=== PATIENT | female | born 1960 | race African-American/Black ===

== ENCOUNTER 2018-09-04 12:52 | Emergency (ER) | payer OTHER, MEDICARE, MEDICAID ==
[~2018-09-04] VITALS: Ht 165.1 cm; Wt 90.7 kg
[~2018-09-04 12:52] MED LIST: CETI10TA22 PO; CLON0.1T PO; CYCL10TA2 PO; ERGO500027 PO; HYDR25TA9 PO; VALS40TA2 PO
[2018-09-04 13:30] VITALS: BP 153/74
[2018-09-04] MEDS ORDERED: CYCLOBENZAPRINE 10 MG TABLET. PO ONE (13:30)
[2018-09-04] MEDS ORDERED: IBUPROFEN 400 MG TABLET. PO ONE (13:30)
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
[2018-09-04] MEDS ORDERED: IBUP-1060 PO (14:25)
[2018-09-04] MEDS ORDERED: DIAZ5TAB PO (14:25)
== END 2018-09-04 14:33 | disposition home or self-care (01) ==
LOC: ER 12:52
DX: M25.512 Pain in left shoulder (principal); M54.2 Cervicalgia; M62.830 Muscle spasm of back; V43.52XA Car driver injured in collision with other type car in traffic accident, initial encounter; Y93.89 Activity, other specified; Y92.89 Other specified places as the place of occurrence of the external cause; Y99.8 Other external cause status
CPT/HCPCS: 73000; 99283

== ENCOUNTER → 2021-03-12 | Outpatient (CLI) | payer OTHER, MEDICAID ==
[~2021-03-12] MED LIST changes: -CETI10TA22 PO; +CETI10TA74 PO; +DIAZ5TAB PO; +HYDR-2145 PO; -HYDR25TA9 PO; +IBUP-1060 PO
--- NOTE | 2021-03-13 10:09 | RAD ---
EXAM: Bilateral digital screening mammogram with tomosynthesis. HISTORY: 60-year-old female with a history of right breast cancer, status post right mastectomy, pres ents for annual mammography of the left breast. TECHNIQUE: Full-field digital craniocaudal and mediolateral oblique 2D and 3D tomosynthesis images of the left breast are obtained for evaluation. Computer aided detection was applied. COMPARISON: 09/06/2019 and 08/22/2017 BREAST PARENCHYMAL DENSITY: Level B - Scattered fibroglandular densities. FINDINGS: There is no new suspicious mass, microcalcification or region of architectural distortion. There are stable left axillary and axillary tail lymph nodes. There is stable coarse benign calcifica tion within the left breast. IMPRESSION: BI-RADS Category 2: Benign finding(s). RECOMMENDATION: Annual mammography is recommended. If your mammogram demonstrates that you have dense breast tissue, which could hide abnormalities, and if you have other risk factors for breast cancer that have been identified, you might benefit from s upplemental screening tests that may be suggested by your ordering physician. Dense breast tissue, i n and of itself, is a relatively common condition. This information is not provided to cause undue c oncern, but rather to raise your awareness and to promote discussion with your physician regarding th e presence of other risk factors, in addition to dense breast tissue. A report of your mammography re sults will be sent to you and your physician. You should contact your physician if you have any ques tions or concerns regarding this report. Mammography is a sensitive method for finding small breast cancers, but it does not detect them all a nd is not a substitute for careful clinical examination. A negative mammogram does not negate a clin ically suspicious finding and should not result in delay in biopsying a clinically suspicious abnorma lity. PQRS compliance statement - Patient information was entered into a reminder system with a target due date for the next mammogram. "Our facility is accredited by the [employer] Mammography [employer]." Electronically signed by: Elvia Claudio MD (03/13/2021 10:07 AM) [id number]
== END ==
LOC: MAMMO 14:15
PROVIDERS: ATTEND Family Medicine
DX: Z12.31 Encounter for screening mammogram for malignant neoplasm of breast (principal)
CPT/HCPCS: 77063; 77067

== ENCOUNTER → 2022-03-15 | Outpatient (CLI) | payer OTHER, MEDICAID ==
[~2022-03-15] MED LIST changes: +CYCL10TA19 PO; -CYCL10TA2 PO
--- NOTE | 2022-03-15 17:13 | RAD ---
Left digital screening 2-D and 3-D (digital breast tomosynthesis) mammogram: Reason for examination: Routine screening. Comparison: Mammogram from 03/12/2021 and 09/06/2019. Interpretation was made with the benefit of CAD. FINDINGS: Breast density: Category B. There are scattered areas of fibroglandular density. No suspicious breast mass, malignant appearing calcifications, or architectural distortion is seen. T here is an unchanged partially calcified fibroadenoma in the left central/4:00 region. IMPRESSION: No evidence of malignancy. Assessment: BI-RADS 2. Benign findings. Recommendation: Routine screening mammograms. The patient will receive a letter with the results in the mail. Patient information will be entered i nto the mammography reminder system with a target recall date for the next mammogram. A reminder samantha er will be generated. Electronically signed by: Caity De Santiago MD (03/15/2022 5:11 PM) [id number]
== END ==
LOC: MAMMO 12:14
PROVIDERS: ATTEND Family Medicine
DX: Z12.31 Encounter for screening mammogram for malignant neoplasm of breast (principal)
CPT/HCPCS: 77063; 77067